=== PATIENT | male | born 1985 | race Two or more races ===

== ENCOUNTER 2021-06-08 07:19 | Inpatient (IN) | payer SELFPAY ==
[~2021-06-08] VITALS: Ht 177.8 cm; Wt 88.5 kg
[2021-06-08] MEDS ORDERED: SODIUM CHLORIDE 0.9% 1,000 ML IV ONE ×2 (08:15)
[2021-06-08] MEDS ORDERED: cefTRIAXone 1GM/50ML D5W 50 ML IV ONE (08:15)
[2021-06-08] MEDS ORDERED: CLINDAMYCIN 600MG IV 50 ML IV ONE (08:15)
[2021-06-08 08:39] LABS: Hematocrit 45.2 % (41.0-53.0); Mean Corpuscular Hemoglobin 29.3 pg (28.0-32.0); Mean Corpuscular Hgb Conc. 35.5 g/dL (32.0-36.0); Mean Corpuscular Volume 82.6 fL (80.0-100.0); Red Blood Cells 5.47 10^6/uL (4.5-5.90); Red Cell Distribution Width 16.6 % (11.8-14.3); White Blood Cell 8.7 10^3/uL (4.4-10.8)
[2021-06-08 08:50] LABS: INR 1.05 (0.9-1.15); Partial Thromboplastin Time 21.9 sec (23.6-33.0)
[2021-06-08 09:05] LABS: Band Neutrophils % (manual) 0; Basophils % (manual) 0 (0.0-2.0); Blast Cells 0; Eosinophils % (manual) 0 (0-7); Metamyelocytes % 0; Myelocytes % 0; Promyelocytes % 0
[2021-06-08 09:10] LABS: Albumin 3.3 g/dL (3.4-5.0); Calcium 8.1 mg/dL (8.5-10.1); Potassium 4.7 mmol/L (3.5-5.1)
[2021-06-08 09:14] LABS: Bilirubin, Total 1.2 mg/dL (0.2-1.0); Total Protein 8.4 g/dL (6.4-8.2)
[2021-06-08 09:38] LABS: Lymphocytes % (manual) 55 (10.0-50.0); Monocytes % (manual) 4 (0-12); Reactive Lymphocytes 4
[2021-06-08] MEDS ORDERED: IOHEXOL 300 MG/ML 100ML BOTTLE IJ ONE (09:38)
[2021-06-08 09:40] LABS: BUN/Creatinine Ratio 9.8
[2021-06-08] MEDS ORDERED: NITROGLYCERIN 0.4 MG SL TAB SL PRN (11:45)
[2021-06-08] MEDS ORDERED: MORPHINE SULFATE INJECTION 2 MG/2 ML SYRG IV PRN ×2 (11:45→12:00)
[2021-06-08] MEDS ORDERED: traMADol HCL 50 MG TAB PO PRN (12:00)
[2021-06-08] MEDS ORDERED: chlordiazePOXIDE HCL 25 MG CAP PO PRN (12:00)
[2021-06-08] MEDS: SODIUM CHLORIDE 0.9% 1,000 ML IV SCH ×2 (12:00→22:00)
[2021-06-08] MEDS ORDERED: PROMETHAZINE HCL 25 MG/ML 1ML IV PRN (12:00)
[2021-06-08] MEDS ORDERED: ACETAMINOPHEN 500 MG TAB PO PRN (12:00)
[2021-06-08] MEDS: chlordiazePOXIDE HCL 5 MG CAP PO SCH ×2 (13:00→18:38)
[2021-06-08] MEDS: CLINDAMYCIN 600MG IV 50 ML IV SCH ×2 (14:08→22:00)
[2021-06-08] MEDS ORDERED: ENOXAPARIN SOD 100 MG/1 ML SYRINGE SC ONE (14:30)
[2021-06-08 22:00] VITALS: BP 125/89
[2021-06-08] MEDS ORDERED: ENOXAPARIN SOD 100 MG/1 ML SYRINGE SC SCH (22:00)
[2021-06-09] MEDS ORDERED: cefTRIAXone 1GM/50ML D5W 50 ML IV SCH (09:00)
== END 2021-06-08 23:57 | disposition left against medical advice (07) | DRG 300 ==
LOC: ER 07:19 → TELE 11:41 → TELE-WESTW 23:26
PROVIDERS: ADMIT Internal Medicine; ATTEND Internal Medicine
DX: I82.431 Acute embolism and thrombosis of right popliteal vein (principal); L03.115 Cellulitis of right lower limb; I82.411 Acute embolism and thrombosis of right femoral vein; Z53.29 Procedure and treatment not carried out because of patient's decision for other reasons; Z20.822 Contact with and (suspected) exposure to COVID-19; E66.9 Obesity, unspecified; F10.10 Alcohol abuse, uncomplicated; Z68.28 Body mass index [BMI] 28.0-28.9, adult
CPT/HCPCS: 36415; 71045; 73701; 80053; 83605; 85007; 85027; 85379; 85610; 85652; 85730; 87040; 87426; 93971; 96365; 96368; 96372; G0378; J0696; J3490